=== PATIENT | male | born 2000 | race African-American/Black ===

== ENCOUNTER 2024-01-15 17:16 | Emergency (ER) | payer OTHER ==
[~2024-01-15] VITALS: Ht 182.9 cm; Wt 68.0 kg
[2024-01-15 17:39] VITALS: TEMP 98.2; O2SAT 99
[2024-01-15] MEDS: CARBAMIDE PEROXIDE 6.5% OTIC SOLN 15ML LEFT EAR ONE (18:35)
[2024-01-15] MEDS: MECLIZINE 12.5MG TABLET PO NR (19:21)
[2024-01-15] MEDS: MECLIZINE 25MG TABLET PO ONE (19:21)
[2024-01-15 19:22] VITALS: BP 133/76; PULSE 78; RESP 20
== END 2024-01-15 19:23 | disposition home or self-care (01) ==
LOC: ER 17:16
DX: H61.22 Impacted cerumen, left ear (principal)
CPT/HCPCS: 99282; 69209; J8597; 69210